=== PATIENT | female | born 1975 | race Caucasian/White ===

== ENCOUNTER 2017-09-17 18:12 | Emergency (ER) | payer BC, OTHER ==
--- NOTE | 2017-09-17 18:54 | UC ---
Upper Extremity HPI - HPI Summary HPI Summary: 41 year old female presents with complains of right thumb pain with no trauma. - History of Current Complaint Stated Complaint: RT WRIST PAIN Time Seen by Provider: 09/17/17 18:53 Hx Obtained From: Patient Hx Last Menstrual Period: 07/22/15 Onset/Duration: Sudden Onset Severity Initially: Moderate Severity Currently: Moderate Pain Scale Used: 0-10 Numeric - 5 Character: Sharp, Aching Aggravating Factor(s): Movement, Lifting, Flexion, Extension Alleviating Factor(s): Nothing Associated Signs And Symptoms: Positive: Negative - Allergies/Home Medications Allergies/Adverse Reactions: Allergies Allergy/AdvReac Type Severity Reaction Status Date / Time No Known Allergies Allergy Verified 09/17/17 19:03 PMH/Surg Hx/FS Hx/Imm Hx Previously Healthy: Yes - Surgical History Surgical History: Yes Surgery Procedure, Year, and Place: TUBAL LIGATION, gallbladder removal - Family History Known Family History: Positive: None - Social History Alcohol Use: None Substance Use Type: None Smoking Status (MU): Never Smoked Tobacco Review of Systems Constitutional: Negative Skin: Negative Eyes: Negative ENT: Negative Respiratory: Negative Cardiovascular: Negative Gastrointestinal: Negative Genitourinary: Negative Motor: Negative Neurovascular: Negative Musculoskeletal: Other: - right thumb base pain Neurological: Negative Psychological: Negative All Other Systems Reviewed And Are Negative: Yes Physical Exam Triage Information Reviewed: Yes Vital Signs Reviewed: Yes Eye Exam: Normal ENT Exam: Normal Dental Exam: Normal Neck exam: Normal Neck: Positive: 1 Respiratory Exam: Normal Cardiovascular Exam: Normal Abdominal Exam: Normal Musculoskeletal: Positive: Other: - right thumb base pain Neurological Exam: Normal Psychological Exam: Normal Skin Exam: Normal Upper Extremity Course/Dx - Differential Dx/Diagnosis Provider Diagnoses: right thumb base pain. right thumb de quervian Discharge - Discharge Plan Condition: Stable Disposition: HOME Prescriptions: Meloxicam [Mobic] 7.5 mg PO BID #30 tab Patient Education Materials: De Quervain Disease (ED) Referrals: Quan Marie MD [Medical Doctor] - Family [facility] [Primary Care Provider] - Joey Berry [Physical Therapist] -
[2017-09-17 19:04] VITALS: BP 138/85
--- NOTE | 2017-09-17 20:02 | RAD ---
INDICATION: Atraumatic right thumb pain COMPARISON: None TECHNIQUE: AP, lateral, and oblique views were obtained. FINDINGS: The bony structures, joint spaces, and soft tissues are normal for age. IMPRESSION: NEGATIVE EXAMINATION.
== END 2017-09-17 20:14 | disposition home or self-care (01) ==
LOC: UCCORT 18:12
DX: M79.644 Pain in right finger(s) (principal); M65.4 Radial styloid tenosynovitis [de Quervain]; Z90.49 Acquired absence of other specified parts of digestive tract
CPT/HCPCS: 99213; G0463